=== PATIENT | female | born 1985 | race Caucasian/White ===

== ENCOUNTER 2016-07-29 21:53 | Inpatient (IN) | payer OTHER ==
[~2016-07-29] VITALS: Ht 165.1 cm; Wt 90.0 kg
[2016-07-29] MEDS ORDERED: LACTATED RINGER'S 1000ML 1,000 ML IV PRN (22:31)
[2016-07-29 22:56] LABS: HEMATOCRIT 35.4 % (37-47); MEAN CELL VOLUME 90.3 fL (80-100); MEAN CORPUSCULAR HEMOGLOBIN 30.4 pg (25-34); MEAN CORPUSCULAR HGB CONC 33.6 g/dl (32-36); MEAN PLATELET VOLUME 10.6 fL (7.4-10.4); PLATELET COUNT 263 K/uL (130-400); RED BLOOD COUNT 3.92 M/uL (4.2-5.4); WHITE BLOOD COUNT 15.96 K/uL (4.8-10.8)
[2016-07-29 23:22] VITALS: Ht 165.1 cm; Wt 90.0 kg
[2016-07-29 23:24] LABS: ALB/GLOB RATIO 0.7 (0.9-2); ALKALINE PHOSPHATASE 123 U/L (45-117); ALT/SGPT 16 U/L (12-78); AST/SGOT 17 U/L (15-37); BLOOD UREA NITROGEN 6 mg/dl (7-18); BUN/CREATININE RATIO 8.9 (10-20); CARBON DIOXIDE 23 mmol/L (21-32); CHLORIDE 107 mmol/L (98-107); CREATININE 0.65 mg/dl (0.60-1.20); GLUCOSE 113 mg/dl (70-99); POTASSIUM 3.8 mmol/L (3.5-5.1); SODIUM 141 mmol/L (136-145)
[2016-07-29] MEDS: PATIENT'S ALLERGY INFO NEEDS ENTERED SCH (23:45)
[2016-07-29] MEDS ORDERED: LACTATED RINGER'S 1000ML 500 ML IV PRN (23:47)
[2016-07-30] MEDS: PATIENT'S ALLERGY INFO NEEDS ENTERED SCH (00:15)
[2016-07-30] MEDS ORDERED: FERR1TAB23 (00:53)
[2016-07-30] MEDS ORDERED: PRENTAB26 PO (00:53)
[2016-07-30] MEDS ORDERED: PSYL48.59 (00:53)
[2016-07-30] MEDS ORDERED: EpHEDrine SULFATE INJ 50 MG/ML AMP ONE ×2 (04:08→09:01)
[2016-07-30] MEDS ORDERED: BUPIVACAINE 0.25% 30 ML VIAL ONE ×2 (04:08→09:01)
[2016-07-30] MEDS ORDERED: FENTANYL 2MCG/ML ROPIV 1.25MG/ML 100ML BAG EPI ONE ×2 (04:09→09:02)
[2016-07-30] MEDS ORDERED: FENTANYL CITRATE INJ 50 MCG/1 ML 2 ML VIAL ONE ×2 (04:09→09:02)
[2016-07-30] MEDS ORDERED: NALOXONE HCL INJ 1 MG in SODIUM CHLORIDE 0.9% 1000ML 1,000 ML IV PRN (04:41)
[2016-07-30] MEDS ORDERED: LACTATED RINGER'S 1000ML 500 ML IV PRN (04:41)
[2016-07-30] MEDS ORDERED: DiphenhydrAMINE HCL 50 MG/ML VIAL IV PRN (04:45)
[2016-07-30] MEDS ORDERED: NALOXONE HCL INJ 0.4 MG/1 ML VIAL/CARP IV PRN (04:45)
[2016-07-30] MEDS ORDERED: EpHEDrine SULFATE INJ 50 MG/ML AMP IV PRN (04:45)
[2016-07-30] MEDS ORDERED: NALBUPHINE HCL INJ 10 MG/ML AMP IV PRN (04:45)
[2016-07-30] MEDS ORDERED: ONDANSETRON INJ 2 MG/ML 2 ML VIAL IV PRN (04:45)
[2016-07-30] MEDS: LACTATED RINGER'S 1000ML 1,000 ML IV SCH ×2 (04:52→13:07)
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
[2016-07-30] MEDS: FENTANYL 2MCG/ML ROPIV 1.25MG/ML 100ML BAG EPI PRN ×2 (07:08→10:22)
--- NOTE | 2016-07-30 09:19 | Progress Note ---
Progress Note Date of Service Jul 30, 2016. Progress Note I was asked by pt's nurse to evaluate pt for pain w/ contractions. I was told that the pt was 9 cm dilated but that the head was still high so that she would not be pushing for a while. I went to see the pt. She's having lower back and lower abdominal pain w/ contractions. Using her PCEA button has not helped. On exam, I found about a T12 level on the L and L1 level on the R. She was laying on her L side, but she had been having late decels when on her R side, so I left her on her L side. In divided doses, I gave 100 mcg fentanyl and 6 mL 0.25% bupivicaine after negative aspiration. After several contractions, her pain was significantly improved. The contractions were much shorter and only on the R side. I told her that I would not likely be able to relieve pressure. I told her that if she is not happy w/ her pain control in 10 or 15 more minutes, that the only option would be to replace her epidural, which I offered to do. I told her to notify her nurse if she would like this. Pt's vitals stable and heart tones unchanged when I left the room.
--- NOTE | 2016-07-30 11:18 | Progress Note ---
Progress Note Date of Service Jul 30, 2016. Progress Note cervix with small anterior lip/+1 FHT Cat 1 will labor down before she starts to push to regain feeling in legs
--- NOTE | 2016-07-30 17:55 | Anesthesia Procedure Note ---
Anesthesia Epidural Removal Nt Date & Time Jul 30, 2016 at 17:55 Vital Signs Pain Intensity: 7.0 Notes Mental Status: alert / awake / arousable, participated in evaluation Nausea / Vomiting: adequately controlled Pain: adequately controlled Airway Patency, RR, SpO2: stable & adequate BP & HR: stable & adequate Hydration State: stable & adequate Neuraxial Anesthesia: was administered Anesthetic Complications: no major complications apparent, pt satisfied with anesthetic care Epidural: removed without complications, with tip intact
[2016-07-30] MEDS ORDERED: LACTATED RINGER'S 1000ML 1,000 ML IV SCH (17:57)
[2016-07-30] MEDS ORDERED: ACETAMINOPHEN 325 MG TAB PO PRN (18:00)
[2016-07-30] MEDS ORDERED: MEASLES, MUMPS & RUBELLA VIRUS VIAL SQ. ONE (18:00)
[2016-07-30] MEDS ORDERED: LANOLIN OINT EXT PRN ×2 (18:00)
[2016-07-30] MEDS ORDERED: HYDROCORTISONE ACETATE 25 MG SUPP PR PRN (18:00)
[2016-07-30] MEDS ORDERED: ACETAMINOPHEN/CODEINE 300/30MG TAB PO PRN ×2 (18:00)
[2016-07-30] MEDS ORDERED: OXYCODONE/ACETAMINOPHEN 5-325 TAB PO PRN (18:00)
[2016-07-30] MEDS ORDERED: BENZOCAINE 20% AER SPR 82.5 GM CAN EXT PRN (18:00)
[2016-07-30] MEDS ORDERED: OXYTOCIN 30 UNITS/500ML NSS IV PRN ×2 (18:00)
[2016-07-30] MEDS ORDERED: DIPHTHERIA/TETANUS/PERTUSSIS 0.5 ML SYR/VIAL IM. ONE (18:00)
[2016-07-30] MEDS ORDERED: SUPERCREAM 0.870 % 15GM JAR EXT PRN (18:00)
--- NOTE | 2016-07-30 18:05 | Vaginal Delivery Summary ---
Vaginal Delivery Summary live female MEGHA over intact perineum with Apgars 9/10 weight pending. Delayed cord clamping and cord blood obtained. spontaneous delivery of placenta. Second degree tear repaired with 15 Lidocaine local and 3/0 Vicryl suture. Final sponge needle and instument count are correct. EBL 200 ml. Mom and baby stable.
[2016-07-30] MEDS: IBUPROFEN 600 MG TAB PO PRN (19:57)
[2016-07-30] MEDS: DOCUSATE SODIUM 100 MG CAP PO SCH (19:57)
[2016-07-30 20:35] VITALS: BP 136/87; PULSE 101; TEMP 36.8
[2016-07-30 23:35] VITALS: BP 114/77; PULSE 98; TEMP 36.9; O2SAT 96
[2016-07-31 03:55] VITALS: BP 123/79; PULSE 72; TEMP 36.8; O2SAT 97
[2016-07-31 07:22] LABS: HEMATOCRIT 28.8 % (37-47)
[2016-07-31] MEDS: IBUPROFEN 600 MG TAB PO PRN ×3 (07:42→20:51)
[2016-07-31] MEDS: PRENATAL VITAMIN TAB PO SCH (07:43)
[2016-07-31] MEDS: FERROUS SULFATE 325 MG TAB PO SCH (07:43)
[2016-07-31] MEDS: DOCUSATE SODIUM 100 MG CAP PO SCH ×2 (07:43→20:51)
--- NOTE | 2016-07-31 07:58 | OB/GYN Progress Note ---
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 Patient is seen and examined. She feels well, no complaints. Ambulating without dizziness Voiding without difficulty Tolerating regular diet with out N&V Bleeding is minimal No fever/ chills/ CP/ SOB/ N&V/ Leg pain Breast feeding without problems Date Time Temp Pulse Resp B/P Pulse Ox O2 Delivery O2 Flow Rate FiO2 07/31/16 03:55 36.8 72 16 123/79 97 Room Air 07/30/16 23:35 36.9 98 16 114/77 96 Room Air 07/30/16 23:35 Room Air 07/30/16 20:35 Room Air 07/30/16 20:35 36.8 101 18 136/87 PE: General: Alert, orientedx3, NAD Abd: soft, NT, fundus firm, below Umbilicus Perineum intact, Lochia rubra minimal Ext; NT, no edema AP: 30 yo s/p , ppd# 1 VSS Afebrile doing well Continue routine care All questions were answered D/C home tomorrow
[2016-07-31 08:00] VITALS: BP 129/78; PULSE 89; TEMP 36.8
[2016-07-31 13:00] VITALS: BP 122/73; PULSE 75; TEMP 36.5
[2016-07-31 16:45] VITALS: BP 116/77; PULSE 87; TEMP 36.1
[2016-07-31] MEDS ORDERED: BISACODYL 5 MG TABEC PO SCH (20:00)
[2016-07-31 23:20] VITALS: BP 113/78; PULSE 92; TEMP 36.7
[2016-08-01] MEDS: IBUPROFEN 600 MG TAB PO PRN ×3 (01:29→12:32)
[2016-08-01] MEDS ORDERED: BISACODYL 10 MG SUPP PR PRN (07:00)
[2016-08-01] MEDS: DOCUSATE SODIUM 100 MG CAP PO SCH (07:32)
[2016-08-01] MEDS: FERROUS SULFATE 325 MG TAB PO SCH (07:32)
[2016-08-01] MEDS: PRENATAL VITAMIN TAB PO SCH (07:32)
[2016-08-01 07:50] VITALS: BP 132/85; PULSE 87; TEMP 36.7
--- NOTE | 2016-08-01 08:53 | OB/GYN Progress Note ---
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 Patient is seen and examined. She feels well, no complaints. Ambulating without dizziness Voiding without difficulty Tolerating regular diet with out N&V Bleeding is minimal No fever/ chills/ CP/ SOB/ N&V/ Leg pain Breast feeding without problems Date Time Temp Pulse Resp B/P Pulse Ox O2 Delivery O2 Flow Rate FiO2 07/31/16 23:20 Room Air 07/31/16 23:20 36.7 92 14 113/78 Room Air 07/31/16 16:45 36.1 87 16 116/77 Room Air 07/31/16 16:45 Room Air 07/31/16 13:00 36.5 75 14 122/73 Test 07/29/16 22:47 07/31/16 06:55 White Blood Count 15.96 H Red Blood Count 3.92 L Hemoglobin 11.9 L 9.3 L Hematocrit 35.4 L 28.8 L Mean Corpuscular Volume 90.3 Mean Corpuscular Hemoglobin 30.4 Mean Corpuscular Hemoglobin Concent 33.6 RDW Standard Deviation 44.4 RDW Coefficient of Variation 13.4 Platelet Count 263 Mean Platelet Volume 10.6 H Sodium Level 141 Potassium Level 3.8 Chloride Level 107 Carbon Dioxide Level 23 Anion Gap 11.0 Blood Urea Nitrogen 6 L Creatinine 0.65 Estimated GFR () 137.1 Estimated GFR (Non- 118.3 BUN/Creatinine Ratio 8.9 L Random Glucose 113 H Calcium Level 9.0 Total Bilirubin 0.3 Aspartate Amino Transferase (AST) 17 Alanine Aminotransferase (ALT) 16 Alkaline Phosphatase 123 H Total Protein 6.8 Albumin 2.8 L Globulin 4.0 Albumin/Globulin Ratio 0.7 L PE: General: Alert, orientedx3, NAD Abd: soft, NT, fundus firm, below Umbilicus Perineum intact, Lochia rubra minimal Ext; NT, no edema AP: 30 yo s/p , ppd# 2 VSS Afebrile doing well Continue routine care All questions were answered Instructions were given when to call D/C home , f/u in office
[2016-08-01] MEDS ORDERED: MTR600X PO (08:54)
--- NOTE | 2016-08-01 08:55 | Discharge Instructions ---
Discharge Instructions Date of Service Aug 01, 2016. Admission Reason for Admission: Check Rupture Membrane Discharge Discharge Diagnosis / Problem: Discharge Goals Goal(s): Routine recovery after delivery Medications Continue Dispensed Medications: lansinoh Activity Recommendations Activity Limitations: as noted below Lifting Limitations: no more than 10 pounds, gradually increase as tolerated Exercise/Sports Limitations: until after follow-up appointment May Resume Sexual Activity: after follow-up appointment Shower/Bathe: no limitations Driving or Machine Use: ACTIVITY RECOMMENDATIONS: * Gradual return to full activity over the next 2-3 weeks. * No lifting - nothing heavier than baby over the next 2-3 weeks. * Do not engage in vigorous exercise, sexual activity or sports until cleared by your physician. * Do not drive or operate any motorized equipment until cleared by your physician. * You may shower/bathe daily. BREAST CARE: If you are not breast feeding: * Wear a supportive bra 24 hours a day for one to two weeks. * Avoid stimulating your breasts and nipples as much as possible during the first few weeks after delivery. * When taking a shower, have the warm water hit your back, not breasts. * When your breasts feel full, apply ice packs. Usually three to four times a day helps ease the discomfort. * Take a mild pain medication (Tylenol/Motrin) when you are uncomfortable. If breast feeding: * Use breast milk to lubricate nipples. Lansinoh cream may be used for sore nipples. You do not need to remove cream prior to breast feeding. If using a different brand of cream, check the label for directions regarding removal of cream prior to nursing. * Wear a supportive bra. * If having problems with breasts or breast feeding, call a [employer] consultant or your health care provider. EPISIOTOMY CARE: After delivery, if you have an episiotomy (stitches), the following steps will ease discomfort and aid healing. * For the first 24 hours after delivery, place ice packs next to your episiotomy to help reduce swelling. * After the first 24 hour-period, sitz baths, either portable or in the tub, are suggested. A shower with a shower arm sprayed over the episiotomy may be comforting. * Lita care should be done after each voiding and bowel movement. Squirt warm water from a plastic bottle over the perineum (region of the body between the anus and urinary opening) and pat dry. * Use Dermoplast to ease discomfort. Shake container. [place] directly over the episiotomy. * Place a Tucks on a clean sanitary pad next to your episiotomy. OVER THE COUNTER MEDICATION: * For discomfort or pain, you may use Acetaminophen (Tylenol), Ibuprofen (Advil ), or Naproxen (Aleve) following the package directions. * For constipation you may use Colace following the package directions. SPECIAL CARE INSTRUCTIONS: When you are discharged from the hospital, it is important for you to follow the instructions listed below: * During the first week at home, you should be able to care for yourself and your baby. In addition, the usual light household activities are encouraged. * Limit your activities to the way you feel. Do not try to clean the house or move furniture. Be sensible. * If you actively engage in sports and have done so up until the time of your delivery, you may resume these activities as soon as you feel able. This may take up to one month or even longer. Use good judgment. * Continue to take your vitamins for at least six weeks after the of your baby. * Your diet need not be limited unless you were on a special diet before your delivery. Breast-feeding mothers need around 2500 calories per day and at least 64-80 ounces of fluid per day (8 to 10 glasses). * You should eat foods from the four major food groups. Crash diets or fad diets are to be avoided. Eating lean meats, fresh fruits and vegetables, low-fat dairy products, high fiber foods and a regular exercise program, will help you get back to your pre- weight without putting your health at risk. * Constipation is sometimes a problem after delivery. Take a mild laxative as needed. If breast feeding, Milk of Magnesia is acceptable to use. You may use a suppository or Fleets enema if no episiotomy. * A daily shower or tub bath is suggested. Be sure to thoroughly and gently dry the perineum. * A bloody vaginal discharge will usually continue until around four weeks post . A small amount of bleeding may continue for as long as six weeks. Vaginal discharge changes from the bright red bleeding after delivery to pink then brownish and finally yellowish-pink before becoming white and disappearing. * Bleeding may increase with activity. Your first period may come in 4-8 weeks. If you are breast feeding, your period may be delayed even longer. * [place] (sex) can begin whenever both you and your partner feel comfortable and do not have any form of genital infection. It is recommended that you wait until after your return appointment and discuss with your physician. If you have questions, please talk to your health care practitioner. A condom should be used to prevent infection and . * Foreplay, gentle intercourse and lubrication is very important the first several times to prevent pain. A water-based lubricant such as K-Y jelly or Astroglide may be used. * Tampons may be used six weeks after delivery. * Douching should be avoided for 6 weeks after delivery. * If you have RH negative blood and your baby is RH positive, you will receive RHOGAM by injection prior to discharge. The nurse will give you a card to keep with you that has the date and place that you received RHOGAM after delivery. * During your care, you had a Rubella screen done to check for the presence of rubella antibodies in your blood. If your test was negative, you will receive a Rubella vaccine prior to discharge. This vaccine may cause a fever, soreness at the injection site and flu-like symptoms. If these symptoms persist, notify your health care practitioner. is not advised for three months after a Rubella vaccine. There is a higher chance of having a baby with defects if conceived within three months of getting the vaccine. * If you were discharged 24 hours from delivery or before 48 hours: Visiting nurses will come to your home 48 hours after discharge to assess you and your baby. The visiting nurse will meet with you while you are in the hospital to arrange a time and get directions to your home. * Verbalizes understanding of car seat law as reviewed with patient nursing. * Car Seat hand-out given and reviewed with patient by nursing. * Shaken baby information reviewed with patient by nursing. Call you doctor if: * Heavy bleeding (saturating several pads an hour) or passing clots the size of your fist. * A fever >101 degrees F (38.3 degrees C) on two occasions four hours apart and/or chills. * Unusual pain in the pelvic or vaginal areas. * "Baby Blues" lasting longer than two weeks. If you have any questions or concerns, call your health care practitioner at . FOLLOW-UP VISIT: * Please call the office at to schedule a 6 week examination. It is important you keep this appointment. * It is important for you to make arrangements for either yearly or twice yearly check-ups thereafter. . Current Hospital Diet Patient's current hospital diet: Regular OB Diet Discharge Diet Recommended Diet: Regular Diet Pending Studies Studies pending at discharge: no Medical Emergencies . Who to Call and When: Medical Emergencies: If at any time you feel your situation is an emergency, please call 911 immediately. . Non-Emergent Contact Non-Emergency issues call your: Surgeon Call Non-Emergent contact if: temperature is above 100.5, your pain is not controlled, your pain is worsening, wound has increased drainage . . "Provider Documentation" section prepared by Kalyan Rader. . VTE Core Measure Inpt VTE Proph given/why not?: Treatment not indicated
[2016-08-01 12:00] VITALS: BP_DIAS 85; PULSE 87; TEMP 36.7
== END 2016-08-01 12:50 | disposition home or self-care (01) | DRG 775 ==
LOC: C.LD 21:53 → C.OPB 21:53 → C.LD 22:34 → C.OBG 07-30 20:44
PROVIDERS: ADMIT Obstetrics & Gynecology; ATTEND Obstetrics & Gynecology
PROC: 10E0XZZ Delivery of Products of Conception, External Approach (ICD-10-PCS; principal; 2016-07-30)
PROC: 0KQM0ZZ Repair Perineum Muscle, Open Approach (ICD-10-PCS; principal; 2016-07-30)
DX: O42.02 Full-term premature rupture of membranes, onset of labor within 24 hours of rupture (principal); O70.1 Second degree perineal laceration during delivery; Z37.0 Single live birth